=== PATIENT | female | born 1945 | race Caucasian/White ===

== ENCOUNTER 2024-05-13 05:40 | Day surgery (SDC) | payer MEDICARE ==
[2024-05-13] MEDS ORDERED: Midazolam 1 MG/ML 2 ML SDV IV ONE (05:41)
[2024-05-13] MEDS ORDERED: fentaNYL 100 MCG/2 ML SDV IV ONE (05:41)
[2024-05-13] MEDS ORDERED: Midazolam 1 MG/ML 2 ML SDV ONE (06:04)
[2024-05-13] MEDS ORDERED: fentaNYL 100 MCG/2 ML SDV ONE (06:04)
[2024-05-13] MEDS: Dextrose 5%-0.45% NaCl 1,000 ML IV SCH (06:25)
[2024-05-13] MEDS: fentaNYL 100 MCG/2 ML SDV IV ONE ×2 (06:51→06:52)
[2024-05-13] MEDS: Midazolam 1 MG/ML 2 ML SDV IV ONE ×3 (06:52→06:57)
== END 2024-05-13 09:03 | disposition home or self-care (01) ==
LOC: DL.ENDO 05:40
PROVIDERS: ATTEND Internal Medicine Gastroenterology
DX: Z12.11 Encounter for screening for malignant neoplasm of colon (principal); D12.0 Benign neoplasm of cecum; E11.9 Type 2 diabetes mellitus without complications; I10 Essential (primary) hypertension; E78.5 Hyperlipidemia, unspecified; E66.09 Other obesity due to excess calories; Z86.010 Personal history of colon polyps; Z88.8 Allergy status to other drugs, medicaments and biological substances; Z88.5 Allergy status to narcotic agent; Z91.041 Radiographic dye allergy status; Z68.26 Body mass index [BMI] 26.0-26.9, adult
CPT/HCPCS: 45385; 88305; J2250; J3010; J7042

== ENCOUNTER 2025-06-15 12:10 | Emergency (ER) | payer MEDICARE ==
[2025-06-15 12:46] LABS: BASOPHILS PERCENT AUTO 0.5 % (0.0-1.0); EOSINOPHILS PERCENT AUTO 3.7 % (1.0-3.0); LYMPHOCYTES PERCENT AUTO 44.2 % (20.5-50.1); MONOCYTES PERCENT AUTO 7.4 % (2-8); NEUTROPHILS PERCENT AUTO 44.2 % (42.2-75.2); PLATELET COUNT,PLT 268 10^3/uL (150-450); RED BLOOD CELL COUNT 4.69 10^6/uL (4.2-5.4); WHITE BLOOD CELL COUNT,WBC 8.1 10^3/uL (5.0-10.0)
[2025-06-15 13:03] LABS: INR 0.9 (0.9-1.2); PTT,PARTIAL THROMBOPLSTIN TIME 25.2 SEC (22.0-34.0)
[2025-06-15 13:16] LABS: LACTIC ACID 1.4 mmol/L (0.4-2.0)
[2025-06-15 13:31] LABS: A/G RATIO 0.9; ALANINE AMINOTRANSFERASE,ALT 30 U/L (14-59); ASPARTATE AMNIOTRANSFERASE,AST 20 U/L (15-37); BILIRUBIN TOTAL 0.6 mg/dL (0.2-1.0); BLOOD UREA NITROGEN,BUN 16 mg/dL (7-18); CARBON DIOXIDE,CO2 32 mmol/L (21-32); CHLORIDE,CL 103 mmol/L (98-107); CREATININE 0.75 mg/dL (0.55-1.02); EST CRCL DRUG DOSING (CG) 53.38 mL/min; GLUCOSE RANDOM 144 mg/dL (70-99); POTASSIUM,K 3.5 mmol/L (3.5-5.1); PROTEIN TOTAL,TP 7.5 g/dL (6.4-8.2); SODIUM,NA 143 mmol/L (136-145); TSH ULTRASENSITIVE 2.14 uIU/mL (0.36-3.74)
[2025-06-15 13:33] LABS: ESTIMATED GFR 81 mL/min (>=60)
== END 2025-06-15 13:55 | disposition home or self-care (01) ==
LOC: DL.ED 12:10
DX: H53.2 Diplopia (principal); R51.9 Headache, unspecified; I10 Essential (primary) hypertension; E11.9 Type 2 diabetes mellitus without complications; Z91.048 Other nonmedicinal substance allergy status; Z88.0 Allergy status to penicillin; Z88.8 Allergy status to other drugs, medicaments and biological substances; Z88.2 Allergy status to sulfonamides; Z79.82 Long term (current) use of aspirin; Z79.899 Other long term (current) drug therapy
CPT/HCPCS: 36415; 70450; 80053; 82607; 83605; 83735; 84443; 85025; 85610; 85730; 86140; 99283; 99284